=== PATIENT | male | born 1960 | race Two or more races ===

== ENCOUNTER 2019-08-21 19:36 | Inpatient (IN) | payer MEDICARE, MEDICAID ==
[~2019-08-21] VITALS: Ht 180.3 cm; Wt 89.4 kg
[2019-08-21] MEDS ORDERED: MAG HYDROX/AL HYDROX/SIMETH 30 ML UDC PO PRN (22:00)
[2019-08-21] MEDS ORDERED: BLOOD SUGAR DIAGNOSTIC 1 EACH STRIP IN ONE (22:00)
[2019-08-21] MEDS ORDERED: LORAZEPAM 0.5 MG TABLET PO PRN (22:00)
[2019-08-21] MEDS ORDERED: TEMAZEPAM 7.5 MG CAPSULE PO PRN (22:00)
[2019-08-21] MEDS ORDERED: MAGNESIUM HYDROXIDE 30 ML UDC PO PRN (22:00)
[2019-08-21] MEDS ORDERED: ACETAMINOPHEN 325 MG TABLET PO PRN (22:00)
[2019-08-21] MEDS ORDERED: hydrALAZINE HCL 25 MG TABLET PO PRN (23:30)
[2019-08-22 02:37] VITALS: BP 150/80
[2019-08-22] MEDS ORDERED: diphenhydrAMINE HCL 50 MG/ML VIAL IM STA (07:01)
[2019-08-22] MEDS ORDERED: HALOPERIDOL LACTATE INJ 5 MG/ML VIAL IM ONE (07:30)
[2019-08-22] MEDS ORDERED: LORAZEPAM INJ 2 MG/ML VIAL IM ONE (07:30)
[2019-08-22 08:00] VITALS: BP 165/116
[2019-08-22] MEDS: DIVALPROEX SODIUM 500 MG TABLET.DR PO SCH ×2 (09:00→17:51)
[2019-08-22] MEDS: BENZTROPINE MESYLATE (1 MG) 1 MG TABLET PO SCH ×2 (09:00→17:51)
[2019-08-22] MEDS: HALOPERIDOL 5 MG TABLET PO SCH ×2 (09:00→17:51)
[2019-08-22] MEDS ORDERED: FLUO-120 PO (09:24)
[2019-08-22 16:00] VITALS: BP 160/100
[2019-08-22 16:29] LABS: BASOPHILS % (AUTO) 0.4 % (0.0-2.0); EOSINOPHILS % (AUTO) 0.6 % (0.0-6.0); HEMATOCRIT 42 % (39-51); HEMOGLOBIN 14.2 g/dL (13.5-17.5); LYMPHOCYTES # (AUTO) 2.4 /CMM (0.8-4.8); LYMPHOCYTES % (AUTO) 26.9 % (20.0-44.0); MEAN CORPUSCULAR HGB CONC 34 g/dl (31.0-36.0); MEAN CORPUSCULAR VOLUME 96 fL (80-96); MONOCYTES # (AUTO) 1.1 /CMM (0.1-1.30); MONOCYTES % (AUTO) 12.3 % (2.0-12.0); NEUTROPHILS # (AUTO) 5.3 /CMM (1.8-8.9); NEUTROPHILS % (AUTO) 59.8 % (43.0-81.0); PLATELET COUNT (AUTO) 296 /CMM (150-450); RED BLOOD CELL COUNT(AUTO) 4.38 MIL/uL (4.5-6.0); WHITE BLOOD COUNT (AUTO) 8.9 K/uL (4.3-11.0)
[2019-08-22 16:44] LABS: ALBUMIN 3.8 g/dL (3.4-5.0); BILIRUBIN,TOTAL 0.9 mg/dL (0.2-1.0); CALCIUM, SERUM 9.4 mg/dL (8.5-10.1); CREATININE 1.7 mg/dL (0.6-1.3); POTASSIUM 3.6 mmol/L (3.5-5.1); TOTAL PROTEIN, SERUM 7.8 g/dL (6.4-8.2)
[2019-08-22 20:49] VITALS: BP 133/80
[2019-08-23 08:00] VITALS: BP 148/90
[2019-08-23] MEDS: BENZTROPINE MESYLATE (1 MG) 1 MG TABLET PO SCH (08:42)
[2019-08-23] MEDS: DIVALPROEX SODIUM 500 MG TABLET.DR PO SCH (08:42)
[2019-08-23] MEDS: HALOPERIDOL 5 MG TABLET PO SCH (08:42)
[2019-08-23] MEDS ORDERED: AMLODIPINE BESYLATE 5 MG TABLET PO SCH (11:30)
[2019-08-23] MEDS ORDERED: CLONIDINE HCL 0.1 MG TABLET PO PRN (11:30)
[2019-08-23 12:40] VITALS: BP 148/90
== END 2019-08-23 14:00 | disposition home or self-care (01) | DRG 885 ==
LOC: GPS 21:00
PROVIDERS: ADMIT Psychiatry & Neurology Psychiatry; ATTEND Nurse Practitioner Acute Care
DX: F20.0 Paranoid schizophrenia (principal); N17.0 Acute kidney failure with tubular necrosis; N39.0 Urinary tract infection, site not specified; G93.40 Encephalopathy, unspecified; F29 Unspecified psychosis not due to a substance or known physiological condition; I10 Essential (primary) hypertension; K21.9 Gastro-esophageal reflux disease without esophagitis; N40.0 Benign prostatic hyperplasia without lower urinary tract symptoms; F12.90 Cannabis use, unspecified, uncomplicated
CPT/HCPCS: 36415; 73030-TC; 73502; 80053-TC; 80061-TC; 84443-TC; 85025-TC; J1200; J1630; J2060